=== PATIENT | female | born 1930 | race Caucasian/White ===

== ENCOUNTER 2017-08-12 16:52 | Inpatient (IN) | payer OTHER ==
[~2017-08-12] VITALS: Ht 149.9 cm; Wt 35.1 kg
[2017-08-12 18:18] LABS: microscopic required? YES; urine erythrocyte NEGATIVE (NEGATIVE)
[2017-08-12 18:20] LABS: BASOPHIL % 0.5 % (0-2); PLATELET COUNT 255 x10^3mcL (130-400); RED CELL DISTRIBUTION WIDTH 13.2 % (11.5-14.5)
[2017-08-12 18:30] LABS: ALKALINE PHOSPHATASE 58 U/L (46-116); ALT/SGPT 17 U/L (14-59); AST/SGOT 19 U/L (15-37); BILIRUBIN TOTAL 0.35 mg/dL (0.20-1.00); CALCIUM 8.4 mg/dL (8.5-10.1); CARBON DIOXIDE 22.5 mmol/L (21-32); CHLORIDE SERUM 85 mmol/L (98-107); CREATININE SERUM 0.6 mg/dL (0.6-1.0); GLUCOSE SERUM 106 mg/dL (74-106); POTASSIUM SERUM 4.4 mmol/L (3.5-5.1)
[2017-08-12 18:34] LABS: ALBUMIN 3.3 g/dL (3.4-5.0); TOTAL PROTEIN, SERUM 6.1 g/dL (6.4-8.2)
[2017-08-12 18:44] LABS: SODIUM SERUM 116 mmol/L (136-145)
[2017-08-12] MEDS ORDERED: KLOR-CON M1010 MEQ PO (19:02)
[2017-08-12] MEDS ORDERED: HCTZ/LISINOPRIL1 TA1 PO (19:02)
[2017-08-12] MEDS ORDERED: PROCARDIA XL60 MG PO (19:02)
[2017-08-12] MEDS ORDERED: PANTOPRAZOLE SO40 M1 PO (19:02)
[2017-08-12] MEDS ORDERED: APTIOM600 MG PO (19:03)
[2017-08-12] MEDS ORDERED: DONEPEZIL HYDRO10 M2 PO (19:03)
[2017-08-12] MEDS ORDERED: ASPIR LOW81 MG PO (19:03)
[2017-08-12] MEDS ORDERED: MIRTAZAPINE15 M2 PO (19:03)
[2017-08-12 19:41] LABS: MAGNESIUM 1.9 mg/dL (1.8-2.4); PHOSPHOROUS 3.9 mg/dL (2.5-4.9)
[2017-08-12 19:44] LABS: CHOLESTEROL/HDL RATIO 3.5
[2017-08-12 19:46] LABS: T3 TOTAL 0.38 ng/mL
[2017-08-12 19:49] LABS: FREE T4 0.84 ng/dL (0.76-1.46); FREE THYROXINE INDEX 1.8 ug/dL (1.4-4.5); T4(THYROXINE) 5.2 ug/dL (4.7-13.3)
[2017-08-12 19:58] VITALS: BP 137/50
[2017-08-12 20:09] VITALS: Ht 149.9 cm; Wt 35.1 kg
[2017-08-12 21:22] VITALS: BP 133/47
[2017-08-13 01:58] LABS: CALCIUM 8.1 mg/dL (8.5-10.1); CARBON DIOXIDE 23.2 mmol/L (21-32); CHLORIDE SERUM 89 mmol/L (98-107); CREATININE SERUM 0.6 mg/dL (0.6-1.0); GLUCOSE SERUM 100 mg/dL (74-106); POTASSIUM SERUM 4.3 mmol/L (3.5-5.1)
[2017-08-13 02:06] LABS: SODIUM SERUM 119 mmol/L (136-145)
[2017-08-13 06:00] LABS: BASOPHIL % 0.4 % (0-2); PLATELET COUNT 222 x10^3mcL (130-400); RED CELL DISTRIBUTION WIDTH 13.4 % (11.5-14.5)
[2017-08-13 06:01] VITALS: BP 151/51
[2017-08-13 06:22] LABS: CALCIUM 7.8 mg/dL (8.5-10.1); CARBON DIOXIDE 22.6 mmol/L (21-32); CHLORIDE SERUM 88 mmol/L (98-107); CREATININE SERUM 0.6 mg/dL (0.6-1.0); GLUCOSE SERUM 87 mg/dL (74-106); MAGNESIUM 1.7 mg/dL (1.8-2.4); PHOSPHOROUS 3.4 mg/dL (2.5-4.9); POTASSIUM SERUM 4.4 mmol/L (3.5-5.1)
[2017-08-13 06:33] LABS: SODIUM SERUM 120 mmol/L (136-145)
[2017-08-13] MEDS ORDERED: APTIOM600 MG PO (08:55)
[2017-08-13 09:21] VITALS: BP 133/68
[2017-08-13 10:25] LABS: RED BLOOD CELLS 3.04 M/mm3 (4.10-5.10)
[2017-08-13 11:56] VITALS: BP 139/47
[2017-08-13 13:10] LABS: CALCIUM 7.9 mg/dL (8.5-10.1); CARBON DIOXIDE 21.3 mmol/L (21-32); CHLORIDE SERUM 89 mmol/L (98-107); CREATININE SERUM 0.6 mg/dL (0.6-1.0); GLUCOSE SERUM 103 mg/dL (74-106); POTASSIUM SERUM 3.8 mmol/L (3.5-5.1)
[2017-08-13 13:12] LABS: IRON 55 ug/dL (50-170)
[2017-08-13 13:14] LABS: SODIUM SERUM 121 mmol/L (136-145); TOTAL IRON BINDING CAPACITY 218 ug/dL (250-450)
[2017-08-13 17:05] VITALS: BP 155/66
[2017-08-13 21:10] VITALS: BP 130/47
[2017-08-14 06:02] VITALS: BP 165/62
[2017-08-14 08:30] LABS: BASOPHIL % 0.5 % (0-2); PLATELET COUNT 255 x10^3mcL (130-400); RED CELL DISTRIBUTION WIDTH 13.5 % (11.5-14.5)
[2017-08-14 09:00] LABS: CALCIUM 8.6 mg/dL (8.5-10.1); CARBON DIOXIDE 23.6 mmol/L (21-32); CHLORIDE SERUM 100 mmol/L (98-107); CREATININE SERUM 0.6 mg/dL (0.6-1.0); GLUCOSE SERUM 90 mg/dL (74-106); MAGNESIUM 2.2 mg/dL (1.8-2.4); PHOSPHOROUS 3.1 mg/dL (2.5-4.9); POTASSIUM SERUM 4.1 mmol/L (3.5-5.1); SODIUM SERUM 130 mmol/L (136-145)
[2017-08-14 09:35] VITALS: BP 145/53
[2017-08-14 14:14] VITALS: BP 152/48
[2017-08-14 17:37] VITALS: BP 152/61
[2017-08-14 22:28] VITALS: BP 155/61
[2017-08-15 06:05] VITALS: BP 132/61
[2017-08-15 08:00] LABS: BASOPHIL % 0.1 % (0-2); PLATELET COUNT 239 x10^3mcL (130-400); RED CELL DISTRIBUTION WIDTH 13.6 % (11.5-14.5)
[2017-08-15 08:16] LABS: CALCIUM 8.2 mg/dL (8.5-10.1); CARBON DIOXIDE 19.6 mmol/L (21-32); CHLORIDE SERUM 107 mmol/L (98-107); GLUCOSE SERUM 112 mg/dL (74-106); MAGNESIUM 2.1 mg/dL (1.8-2.4); PHOSPHOROUS 4.5 mg/dL (2.5-4.9); SODIUM SERUM 136 mmol/L (136-145)
[2017-08-15 09:32] VITALS: BP 167/76
[2017-08-15 20:33] VITALS: BP 143/66
[2017-08-16 05:22] VITALS: BP 155/71
[2017-08-16 08:52] VITALS: BP 165/56
[2017-08-16 11:43] LABS: BASOPHIL % 0.2 % (0-2); PLATELET COUNT 213 x10^3mcL (130-400); RED CELL DISTRIBUTION WIDTH 14.2 % (11.5-14.5)
[2017-08-16 12:01] LABS: CALCIUM 8.6 mg/dL (8.5-10.1); CARBON DIOXIDE 18.8 mmol/L (21-32); CHLORIDE SERUM 118 mmol/L (98-107); CREATININE SERUM 0.8 mg/dL (0.6-1.0); GLUCOSE SERUM 155 mg/dL (74-106); MAGNESIUM 2.1 mg/dL (1.8-2.4); PHOSPHOROUS 2.5 mg/dL (2.5-4.9); POTASSIUM SERUM 3.2 mmol/L (3.5-5.1); SODIUM SERUM 147 mmol/L (136-145)
[2017-08-16 14:16] VITALS: BP 142/56
[2017-08-16 18:17] VITALS: BP 127/49
[2017-08-16 21:27] VITALS: BP 114/40
[2017-08-17 05:35] VITALS: BP 126/50
[2017-08-17 06:25] LABS: BASOPHIL % 0.5 % (0-2); PLATELET COUNT 213 x10^3mcL (130-400); RED CELL DISTRIBUTION WIDTH 14.1 % (11.5-14.5)
[2017-08-17 06:44] LABS: CALCIUM 8.2 mg/dL (8.5-10.1); CARBON DIOXIDE 23.4 mmol/L (21-32); CHLORIDE SERUM 114 mmol/L (98-107); CREATININE SERUM 0.5 mg/dL (0.6-1.0); GLUCOSE SERUM 92 mg/dL (74-106); MAGNESIUM 1.6 mg/dL (1.8-2.4); PHOSPHOROUS 2.1 mg/dL (2.5-4.9); SODIUM SERUM 146 mmol/L (136-145)
[2017-08-17 06:53] LABS: POTASSIUM SERUM 2.5 mmol/L (3.5-5.1)
[2017-08-17 09:13] VITALS: BP 129/47
[2017-08-17 12:54] LABS: CALCIUM 8.6 mg/dL (8.5-10.1); CARBON DIOXIDE 18 mmol/L (21-32); CHLORIDE SERUM 113 mmol/L (98-107); CREATININE SERUM 0.8 mg/dL (0.6-1.0); GLUCOSE SERUM 136 mg/dL (74-106); POTASSIUM SERUM 3.6 mmol/L (3.5-5.1); SODIUM SERUM 145 mmol/L (136-145)
[2017-08-17 13:41] VITALS: BP 149/52
[2017-08-17 17:49] VITALS: BP 157/47
[2017-08-17 21:19] VITALS: BP 146/52
[2017-08-18 05:35] VITALS: BP 142/59
[2017-08-18 06:42] LABS: BASOPHIL % 0.4 % (0-2); PLATELET COUNT 238 x10^3mcL (130-400); RED CELL DISTRIBUTION WIDTH 13.6 % (11.5-14.5)
[2017-08-18 06:58] LABS: CARBON DIOXIDE 21.6 mmol/L (21-32); CHLORIDE SERUM 110 mmol/L (98-107); CREATININE SERUM 0.5 mg/dL (0.6-1.0); GLUCOSE SERUM 93 mg/dL (74-106); MAGNESIUM 1.3 mg/dL (1.8-2.4); PHOSPHOROUS 1.8 mg/dL (2.5-4.9); POTASSIUM SERUM 3.1 mmol/L (3.5-5.1); SODIUM SERUM 141 mmol/L (136-145)
[2017-08-18 09:33] VITALS: BP 183/81
[2017-08-18 13:24] VITALS: BP 146/71
[2017-08-18 15:14] VITALS: BP 146/71
[2017-08-18] MEDS ORDERED: FLO4 PO (16:37)
== END 2017-08-18 17:30 | disposition home or self-care (01) | DRG 377 ==
LOC: ED 16:52 → DU 18:53
PROVIDERS: Emergency Medicine; Family Medicine; Family Medicine Sports Medicine; Internal Medicine Gastroenterology
PROC: 0DBN8ZZ Excision of Sigmoid Colon, Via Natural or Artificial Opening Endoscopic (ICD-10-PCS; principal; 2017-08-16 09:00)
PROC: 0DBN8ZX Excision of Sigmoid Colon, Via Natural or Artificial Opening Endoscopic, Diagnostic (ICD-10-PCS; 2017-08-16 09:00)
DX: K57.31 Diverticulosis of large intestine without perforation or abscess with bleeding (principal); G93.41 Metabolic encephalopathy; N17.0 Acute kidney failure with tubular necrosis; N39.0 Urinary tract infection, site not specified; E87.1 Hypo-osmolality and hyponatremia; E44.0 Moderate protein-calorie malnutrition; Z68.1 Body mass index [BMI] 19.9 or less, adult; I10 Essential (primary) hypertension; E78.5 Hyperlipidemia, unspecified; G47.00 Insomnia, unspecified; K21.9 Gastro-esophageal reflux disease without esophagitis; G30.9 Alzheimer's disease, unspecified; F02.80 Dementia in other diseases classified elsewhere, unspecified severity, without behavioral disturbance, psychotic disturbance, mood disturbance, and anxiety; D63.8 Anemia in other chronic diseases classified elsewhere; E83.42 Hypomagnesemia; B96.20 Unspecified Escherichia coli [E. coli] as the cause of diseases classified elsewhere; Z86.73 Personal history of transient ischemic attack (TIA), and cerebral infarction without residual deficits
CPT/HCPCS: 45378; 83880; 84439; 87046; 87046-59; 97110-GP; 97116-GP; 97530-GP; J0696; J1200; J1610; J2250; J2310; J2405; J3010; J3475; J3480; J3490; J7030; Q0092; Q9967